=== PATIENT | male | born 1995 | race Caucasian/White ===

== ENCOUNTER 2018-07-14 07:38 | Emergency (ER) | payer SELFPAY ==
[~2018-07-14] VITALS: Ht 190.5 cm; Wt 88.1 kg
[2018-07-14 07:42] VITALS: BP 131/60; PULSE 58; TEMP 98.2
[2018-07-14] MEDS ORDERED: ADDERALL XR30 MG PO (07:46)
[2018-07-14] MEDS ORDERED: CEPHALEXIN500 M1 PO (08:19)
== END 2018-07-14 08:40 | disposition home or self-care (01) ==
LOC: COL.ER 07:38
DX: S51.842A Puncture wound with foreign body of left forearm, initial encounter (principal); F90.9 Attention-deficit hyperactivity disorder, unspecified type; F17.290 Nicotine dependence, other tobacco product, uncomplicated; Z23 Encounter for immunization; W45.8XXA Other foreign body or object entering through skin, initial encounter; W27.8XXA Contact with other nonpowered hand tool, initial encounter; Y92.69 Other specified industrial and construction area as the place of occurrence of the external cause; Y99.0 Civilian activity done for income or pay

== ENCOUNTER 2020-01-15 13:57 | Outpatient (RCR) | payer OTHER ==
[~2020-01-15 13:57] MED LIST: ADDERALL XR30 MG PO; CEPHALEXIN500 M1 PO; FLEXERIL 1010 MG/TAB PO; MOTRIN 800800 MG/TAB PO
== END 2020-03-18 12:32 | disposition home or self-care (01) ==
LOC: WSOH 13:57
DX: S30.0XXA Contusion of lower back and pelvis, initial encounter (principal); S63.501A Unspecified sprain of right wrist, initial encounter; F90.9 Attention-deficit hyperactivity disorder, unspecified type; Z90.89 Acquired absence of other organs; Y99.0 Civilian activity done for income or pay